=== PATIENT | male | born 1980 | race Caucasian/White ===

== ENCOUNTER 2020-11-19 02:05 | Emergency (ER) | payer BC ==
[~2020-11-19] VITALS: Ht 182.9 cm; Wt 88.5 kg
[2020-11-19 02:06] VITALS: BP 120/77
--- NOTE | 2020-11-19 02:06 | NUR ---
TO BED AMBULATORY
--- NOTE | 2020-11-19 02:10 | NUR ---
40 Y/O MALE CAME TO THE ED FOR ABDOMINAL PAIN. PT STATES THAT IT IS A 8/10 ABDOMINAL PAIN THAT STARTED LAST THURSDAY. DENIES N/V/D; SKIN IS PINK/WARM/DRY; AAOX4 WITH EVEN AND STEADY GAIT; LUNGS CLEAR BL; HR EVEN AND REGULAR; PT DENIES ANY FEVER, CP, SOB, OR COUGH AT THIS TIME; VSS; PATIENT POSITIONED FOR COMFORT; HOB ELEVATED; BEDRAILS UP X2; BED DOWN. ER MD MADE AWARE OF PT STATUS. PMH:PRE-DM ALLERGIES: PENICILLIN
[2020-11-19] MEDS ORDERED: NACL 0.9% 1,000 ML IV SCH (02:30)
[2020-11-19] MEDS ORDERED: KETOROLAC 30 MG/ML VIAL IVP ONE (02:30)
[2020-11-19] MEDS ORDERED: ALUMINUM HYD/MAG/SIMETHICONE 30 ML, DICYCLOMINE HCL LIQUID 20 MG, LIDOCAINE VISCOUS 2% ... PO ONE ×3 (02:30)
[2020-11-19] MEDS ORDERED: ONDANSETRON 4 MG/2 ML VIAL IVP ONE (02:30)
[2020-11-19 02:46] LABS: BASOPHILS # (AUTO) 0.1 K/uL (0.00-0.22); BASOPHILS % (AUTO) 0.5 % (0.0-2.0); EOSINOPHILS % (AUTO) 0.3 % (0.0-4.0); HEMATOCRIT 46.3 % (36-52); HEMOGLOBIN 15.6 g/dL (12.0-18.0); LYMPHOCYTES # (AUTO) 2.4 K/uL (2.0-11.5); LYMPHOCYTES % (AUTO) 16.1 % (20.5-51.1); MEAN CORPUSCULAR HEMOGLOBIN 30 pg (27-31); MEAN CORPUSCULAR HGB CONC 34 g/dL (33-37); MEAN CORPUSCULAR VOLUME 89.3 fL (80-94); MONOCYTES # (AUTO) 1.5 K/uL (0.8-1.0); MONOCYTES % (AUTO) 10.1 % (1.7-9.3); NEUTROPHILS # (AUTO) 10.8 K/uL (1.8-7.7); PLATELET COUNT (AUTO) 257 K/uL (140-450); RED BLOOD CELL COUNT(AUTO) 5.19 MIL/uL (4.20-6.10); RED CELL DISTRIBUTION WIDTH 13.9 % (11.6-13.7); WHITE BLOOD COUNT (AUTO) 14.8 K/uL (4.8-10.8)
[2020-11-19] MEDS ORDERED: LIDOCAINE VISCOUS 2% 20 ML UDC ONE (02:46)
[2020-11-19] MEDS ORDERED: ALUMINUM HYD/MAG/SIMETHICONE 30 ML UDC ONE (02:46)
[2020-11-19] MEDS ORDERED: DICYCLOMINE HCL LIQUID 10 MG/5 ML UDC ONE (02:47)
[2020-11-19 03:01] LABS: ALBUMIN 4.3 g/dL (3.4-5.0); ANION GAP 14.7 (8-16); CARBON DIOXIDE 21.9 mmol/L (21-32); CREATININE 1.1 mg/dL (0.6-1.3); POTASSIUM 3.6 mmol/L (3.5-5.1); TOTAL BILIRUBIN 1.7 mg/dL (0.0-1.0)
--- NOTE | 2020-11-19 03:29 | NUR ---
GIVEN REPORT TO FRANCIE VICTOR FOR CONTINUITY OF CARE
[2020-11-19] MEDS ORDERED: FAMO-90 PO (04:02)
[2020-11-19] MEDS ORDERED: ONDA-24 SL (04:02)
--- NOTE | 2020-11-19 04:30 | NUR ---
Patient discharged with v/s stable. Written and verbal after care instructions given and explained. Patient alert, oriented and verbalized understanding of instructions. Ambulatory with steady gait. All questions addressed prior to discharge. ID band removed. Patient advised to follow up with PMD. Rx of PEPCID, ZOFRAN given. Patient educated on indication of medication including possible reaction and side effects. Opportunity to ask questions provided and answered.
[2020-11-19 04:31] VITALS: BP 120/77
--- NOTE | 2020-11-20 19:31 | NUR ---
LATE ENTRY- 0.9% NS BOLUS DISCONTINUED AT 0006
== END 2020-11-19 04:30 | disposition home or self-care (01) ==
LOC: MED 02:05
DX: K29.70 Gastritis, unspecified, without bleeding (principal); Z88.0 Allergy status to penicillin
CPT/HCPCS: 36415; 76705; 80053; 83690; 85025; 96361; 96374; 96375; 99284; J1885; J2405; J7030